=== PATIENT | female | born 1970 | race African-American/Black ===

== ENCOUNTER 2024-09-18 23:43 | Emergency (ER) | payer OTHER ==
[~2024-09-18] VITALS: Ht 157.5 cm; Wt 73.5 kg
[2024-09-19] MEDS: SODIUM CHLORIDE 0.9% 1000ML 1,000 ML IV STA (01:35)
[2024-09-19] MEDS: KETOROLAC TROMETHAMINE 30 MG/ML VIAL IV ONE (01:36)
[2024-09-19] MEDS ORDERED: IVERMECTIN PO (02:10)
[2024-09-19 02:18] VITALS: PULSE 70; RESP 17; TEMP 98.4
[2024-09-19 02:26] VITALS: BP 137/65; PULSE 70; RESP 17; TEMP 98.4; O2SAT 100
== END 2024-09-19 02:25 | disposition home or self-care (01) ==
LOC: FSED 23:50
DX: R10.9 Unspecified abdominal pain (principal); K52.9 Noninfective gastroenteritis and colitis, unspecified; R11.2 Nausea with vomiting, unspecified; R51.9 Headache, unspecified; F17.210 Nicotine dependence, cigarettes, uncomplicated
CPT/HCPCS: 70450; 74176; 80048; 80076; 81003; 85025; 99284; J1885; J7030